=== PATIENT | male | born 1965 | race Caucasian/White ===

== ENCOUNTER 2018-11-06 07:55 | Outpatient (CLI) | payer OTHER ==
--- NOTE | 2018-11-06 09:35 | RAD ---
CHEST 2 VIEWS: Date: 11/06/18 HISTORY: Malignant neoplasm of border of tongue. COMPARISON: Radiograph from 2010. FINDINGS: Lungs are without confluent air space consolidation, pneumothorax, or effusion. Cardiac silhouette an d mediastinal contours are similar. No acute osseous abnormality. IMPRESSION: No acute intrathoracic abnormality. POS: [facility]
--- NOTE | 2018-11-06 09:56 | CT ---
CONTRAST ENHANCED CT IMAGES SOFT TISSUE NECK. HISTORY: Right posterior margin tongue mass compared to previous exam. COMPARISON: Previous comparison CT images of neck not available at this institution. The patient states he has h ad no previous soft tissue neck CT and does not recall having a scan previously. FINDINGS: CT images soft tissue neck demonstrate an enhancing area of abnormal erosive change involving the rig ht lateral body of the tongue. The area of enhancement measures 2.6 x 0.6 x 1.3 cm. No evidence of a parotid or carotid space mass is seen. Some mild atherosclerotic calcification is s een in the distal aspect of the common carotid arteries and proximal internal carotid arteries. There is some heterogeneity also seen in the mid pole of the right thyroid lobe laterally. Further w orkup using thyroid sonography may be of use. IMPRESSION: Enhancing right tongue heterogeneous mass concerning for malignancy. Correlation with PET imaging ma y be of use. No other definite evidence of soft tissue neck abnormality is seen. POS: [facility]
[2018-11-06] MEDS ORDERED: Iopamidol 370 76% 100 ML VIAL ONE (10:57)
== END 2018-11-06 07:56 | disposition home or self-care (01) ==
LOC: BICCT 07:55
PROVIDERS: ATTEND Internal Medicine Medical Oncology
DX: C02.1 Malignant neoplasm of border of tongue (principal); K14.9 Disease of tongue, unspecified
CPT/HCPCS: 70491; 71046; Q9967

== ENCOUNTER 2018-11-14 11:23 | Outpatient (CLI) | payer OTHER ==
--- NOTE | 2018-11-14 14:24 | PET ---
RADIONUCLIDE PET SCAN WITH CT ATTENUATION CORRECTION: HISTORY: Tongue cancer. Initial staging. FINDINGS: Physiologic uptake of radiotracer throughout the enteric system and along each urinary tract. A focal area of markedly increased radiotracer uptake at the right side of the tongue and region of abnormal ity described on recent CT shows a maximum SUV of 9.9. No abnormal activity is apparent along either jugular lymph node chain. Uptake within the chest, abdomen, and pelvis is within normal limits. No hy permetabolic lesions of the bone. Tiny calcific density associated with a nondilated sweta at the mid portion of the right kidney. There is prominent calcification throughout the arterial structures. IMPRESSION: 1. Hypermetabolic activity associated with right tongue cancer. No evidence of lymph node involvemen t or distant metastases. 2. Atherosclerosis. 3. Tiny, nonobstructing right renal calculus. POS: [facility]
== END 2018-11-14 11:24 | disposition home or self-care (01) ==
LOC: PET 11:23
PROVIDERS: ATTEND Internal Medicine Medical Oncology
DX: C02.9 Malignant neoplasm of tongue, unspecified (principal); I70.90 Unspecified atherosclerosis; N20.0 Calculus of kidney; R94.8 Abnormal results of function studies of other organs and systems
CPT/HCPCS: 78815; A9552

== ENCOUNTER 2018-11-15 06:58 | Inpatient (IN) | payer OTHER ==
[2018-11-14 15:18] VITALS: BMI 29.8
[2018-11-15] MEDS ORDERED: Bacitracin Zinc Ointment 30 gm TUBE ONE (09:39)
[2018-11-15] MEDS ORDERED: Lidocaine 1% w/Epinephrine 1:100K 20 ML VIAL ONE (09:39)
[2018-11-15] MEDS ORDERED: Famotidine/PF 20 mg/2ml Vial ONE (09:46)
[2018-11-15] MEDS ORDERED: Fentanyl 100 MCG/2 ML VIAL ONE ×3 (09:46→13:27)
[2018-11-15] MEDS ORDERED: Lidocaine 2% Jelly 5 ML TUBE ONE (09:52)
[2018-11-15] MEDS ORDERED: Oxymetazoline HCl 0.05% ( 15 ML ) ONE (09:52)
[2018-11-15] MEDS ORDERED: Clindamycin/D5W 900 mg/50 ml Premix Bag ONE (10:20)
[2018-11-15] MEDS ORDERED: HYDROmorphone 2 MG/ML VIAL ONE (11:38)
[2018-11-15] MEDS ORDERED: Metoclopramide HCl 10 MG/2 ML VIAL ONE (11:39)
[2018-11-15] MEDS ORDERED: Esmolol 100 MG/10 ML VIAL ONE (11:39)
[2018-11-15] MEDS ORDERED: Succinylcholine Chloride 20 MG/ML 10 ml SYRINGE FS ONE (11:39)
[2018-11-15] MEDS ORDERED: Lidocaine 1% PF 5 ML VIAL ONE (11:39)
[2018-11-15] MEDS ORDERED: Ondansetron PF 4 MG/2 ML Vial ONE (11:39)
[2018-11-15] MEDS ORDERED: Ketorolac Tromethamine 30 MG/ML VIAL ONE (11:39)
[2018-11-15] MEDS ORDERED: Dexamethasone 20 MG/5 ML VIAL ONE (11:39)
[2018-11-15] MEDS ORDERED: PROPOFOL 200 MG/20 ML VIAL ONE (11:39)
[2018-11-15] MEDS ORDERED: diphenhydrAMINE 50 MG/ML VIAL IM PRN (12:41)
[2018-11-15] MEDS ORDERED: Promethazine HCl 25 MG/ML VIAL SLOW IVP PRN (12:41)
[2018-11-15] MEDS ORDERED: Promethazine HCl 25 MG/ML VIAL IM PRN ×2 (12:41)
[2018-11-15] MEDS ORDERED: diphenhydrAMINE 25 MG CAP PO PRN (12:41)
[2018-11-15] MEDS ORDERED: Morphine CADD 1 MG/ML CADD IVPB PRN (12:41)
[2018-11-15] MEDS ORDERED: Ondansetron PF 4 MG/2 ML Vial IVP PRN (12:41)
[2018-11-15] MEDS ORDERED: Ondansetron HCl/PF 4 MG/2 ML Vial IVP PRN (12:41)
[2018-11-15] MEDS ORDERED: Naloxone HCl 0.4 mg/ml Vial IV PRN (12:41)
[2018-11-15] MEDS ORDERED: Zolpidem Tartrate 5 MG TAB PO PRN (12:41)
[2018-11-15] MEDS ORDERED: Meperidine HCl/PF 25 MG/ML VIAL SLOW IVP PRN (12:41)
[2018-11-15] MEDS ORDERED: diphenhydrAMINE 50 MG/ML VIAL IVP PRN (12:41)
[2018-11-15] MEDS ORDERED: Communication Order-Pharmacy FS SCH (12:45)
[2018-11-15] MEDS ORDERED: Hydrocodone-Acetamin 15 ML UDCUP PO PRN (14:33)
[2018-11-15] MEDS ORDERED: Ondansetron PF 4 MG/2 ML Vial SLOW IVP PRN (14:35)
[2018-11-15] MEDS ORDERED: Dextrose 5% in Water 1,000 ML IV PRN (14:41)
[2018-11-15] MEDS ORDERED: Dextrose 50% Abboject 50 ML SYRINGE IVP PRN (14:41)
[2018-11-15] MEDS ORDERED: Insulin Regular 300 UNITS/3 ML VIAL SC SCH (14:45)
[2018-11-15] MEDS: Sodium Chloride 0.45% 1,000 ML IV SCH ×2 (16:44→22:37)
[2018-11-15] MEDS: Clindamycin/D5W 900 MG in Premix Bag 1 BAG IVPB SCH (17:53)
[2018-11-15] MEDS ORDERED: Insulin Regular 300 UNITS/3 ML VIAL SC PRN (18:16)
[2018-11-15] MEDS: Lisinopril 2.5 MG TAB PO SCH (20:22)
[2018-11-15] MEDS: Bacitracin Zinc 1 Packet TOP SCH (20:22)
[2018-11-15] MEDS: Nicotine 14 MG PATCH TOP SCH (22:36)
[2018-11-16] MEDS: Clindamycin/D5W 900 MG in Premix Bag 1 BAG IVPB SCH ×3 (01:10→17:16)
--- NOTE | 2018-11-16 03:17 | CON ---
DATE OF CONSULTATION: 11/15/2018 HISTORY OF PRESENT ILLNESS: Mr. Grady is a very pleasant, 53-year-old male. He is unable to give much of a history because of his operative procedure. He apparently was found to have a head and neck tumor and has been operated on by Ear, Nose, and Throat Surgery today. There is no operative note available in the medical record yet. There is also no H and P in the medical record. I was consulted because of his presence in the intermediate care unit. Reviewing old records, he had a CT scan done in October of this year on the showing a right posterior lateral tongue mass measuring 2.6 x 0.6 x 1.3 cm. Per the report, this is worrisome for malignancy. PET imaging done 8 days later showed a tongue lesion, but no lymph node involvement. He had renal stones noted. He subsequently has undergone neck dissection, partial tongue resection on this evening, is transferred to the intermediate care unit. PAST MEDICAL HISTORY: Obtained from old records since he cannot really talk well at this time, is remarkable for 1. History of heavy alcohol use noted in 2014. 2. History of lipid disorder. 3. History of medical noncompliance. 4. History of depression. 5. History of tobacco use. 6. History of an appendectomy. FAMILY HISTORY: Positive for vascular disease, diabetes, and cancer. SOCIAL HISTORY: It is unclear whether he is smoking now or not, but I do not believe he is. REVIEW OF SYSTEMS: Ten-point review of systems completed, not obtainable. PHYSICAL EXAMINATION: GENERAL: He is a very cooperative, pleasant considering his how miserable he is postoperatively. He is only complaining of a dry mouth. VITAL SIGNS: He is afebrile. Blood pressure 135/73, heart rate 86, respiratory rate is 18, oximetry is 93 to 95. HEENT: Pupils are equal. Sclerae are anicteric. NECK: Supple. He has scars over his neck. They are open and sutured. Two drains coming out his lower anterior neck. He is complaining only of a dry mouth. LUNGS: Clear. HEART: Regular rhythm. S1 and S2 are normal. ABDOMEN: Soft and nontender. EXTREMITIES: Without clubbing, cyanosis, or edema. IMPRESSION: 1. Status post head and neck surgery for malignancy. 2. Dry mouth. I have asked the respiratory therapist to get him a face mask just for humidity and hopefully lead to improvement of his dry mouth symptoms. I would be happy to follow with him in the Critical Care Unit and intermediate care unit until he transfers out. This is a 70 minute consult, with greater than 50% of time spent on unit coordinating care. Job ID: [id number] MTDD
[2018-11-16] MEDS: Sodium Chloride 0.45% 1,000 ML IV SCH ×3 (06:10→22:24)
--- NOTE | 2018-11-16 06:44 | CON ---
DATE OF CONSULTATION: SUBJECTIVE: Postop visit from earlier today, the patient underwent a hemiglossectomy along with a right partial neck dissection. Overall, the patient is doing very well. He is sitting up in his bed comfortably. At this time, is with him. He is breathing through his nose without any difficulty, still states it is somewhat difficult to swallow, though he is able to do so. He has no other complaints at this time. OBJECTIVE: Again, the patient is a very pleasant male. Postsurgery, he is sitting comfortably, breathing without any difficulty. He is able to open mouth and breathe through the mouth as well as nose. Wound site appears to be doing well. All sutures and rosa isela are in place. Upon examination of his oral region, tongue is moderately swollen, though able to see completely back to the pharynx region. No sign of infection in operative site at this time. Both midline and right drains are in place. ASSESSMENT: Postop visit following hemiglossectomy and partial right neck dissection. PLAN: 1. Monitor blood sugars and treat per sliding scale. 2. Consult Med if blood sugars are not able to be controlled per sliding scale. 3. He will stay in ICU area through the night. Consult ENT as needed. Job ID: [id number]
[2018-11-16] MEDS ORDERED: Nicotine 14 MG PATCH TOP SCH (09:00)
[2018-11-16] MEDS: Atorvastatin Calcium 10 MG TAB PO SCH (09:04)
[2018-11-16] MEDS: Bacitracin Zinc 1 Packet TOP SCH ×2 (09:06→20:13)
--- NOTE | 2018-11-16 11:38 | OP ---
DATE OF PROCEDURE: 11/15/2018 PREOPERATIVE DIAGNOSES: 1. 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 2. Dysphagia. POSTOPERATIVE DIAGNOSES: 1. 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 2. Dysphagia. PROCEDURES PERFORMED: 1. Right hemiglossectomy. 2. Right modified radical neck dissection. FACILITIES PAINTER: Iker Camejo. ESTIMATED BLOOD LOSS: 100 mL. COMPLICATIONS: None. ANESTHESIA: GETA. DESCRIPTION OF PROCEDURE: The patient was taken to the operating room and placed supine on table. General endotracheal anesthesia was obtained via nasotracheal intubation by the Anesthesia Staff. Following this, the patient was prepped and draped for standard oral procedure. Following this, the dental gags were placed exposing the oral cavity. On the right lateral tongue, there was a 2.5 cm to 3 cm long lesion that was ulcerative on the right lateral border of the tongue. Using a 1 to 2 cm margin, the Bovie electrocautery was used to excise the near half of the anterior tongue on this right side. Margins were sent and were cleared of any malignancy or dysplasia. Following this, the mucosal edges and the muscle of the remnant tongue on this right side was closed using 2-0 Vicryl stitches. Following this, the patient was prepped and draped in standard surgical fashion for neck procedure. Following this, an apron type incision was created going down the border of the sternocleidomastoid and then extending over horizontally and to the midline of the neck. Incision was made with a 15 blade and a Bovie electrocautery through skin, subcutaneous tissue, and the platysma layer. Subplatysmal flaps were elevated to the level of the mandible superiorly and inferiorly to the level of the clavicle. Following this, level I dissection was proceeded first. The digastric muscle was identified and dissection was carried down the neck contents. The lymphatic system around the submandibular gland was then dissected free of its attachments to the mandible. The facial artery and facial nerve were suture ligated at this area. Following this, the gland was retracted inferiorly and the lingual nerve was identified. The postganglionic fibers were then suture ligated and the nerve was released superiorly. Following this, the gland and the level I contents were displaced inferiorly. The mylohyoid muscle was retracted and from these lymphatic contents anteriorly. The entirety of the right level I submandibular gland and its lymphatic system was then suture ligated and removed from the body. Following this, digastric muscle was retracted superiorly and dissection was then carried down the sternocleidomastoid fascia. The spinal accessory nerve was identified. There was noted to be coursing lateral to the internal jugular vein as it was dissected medially. Level IIA contents were then dissected down to the level of the deep neck muscle fascia and the contents were then passed underneath the spinal accessory nerve and was retracted medially. Following this, dissection was further carried from a superior to inferior direction along the fascia of the sternocleidomastoid down to the deep neck musculature. The omohyoid muscle was identified and was transected and this was carried down to the level of the clavicle. Following this, the inferior limit of the dissection was at the level of the clavicle, where the inferior lymphatic pedicle was suture ligated beginning from the internal jugular vein laterally to the previous posterior dissection area. Following this, the contents were then dissected from lateral to medial and the internal jugular vein was unwrapped. Any feeding vessels were suture ligated. Following this, the lymphatic pedicle of levels II, III, and IV were retracted medially and dissection was carried off the carotid artery. The lymphatic contents were then dissected to the midline of the neck on this side and they were suture ligated and removed. Following this, the wound was irrigated. Drains were placed medially and laterally and the wound was closed using 2-0 Vicryl for the platysma layer and subcuticular layers and rosa isela for the skin. Job ID: [id number]
--- NOTE | 2018-11-16 13:56 | CON ---
DATE OF CONSULTATION: SUBJECTIVE: The patient is doing better. He reports that he is swallowing a little easier, still only sipping water, but is talking much better than he was previous day. OBJECTIVE: Mr. Grady is a well-developed, well-nourished, in no acute distress. He is sitting up comfortably, breathing through his nose without any difficulty. Swallowing is able to be done, though with some soreness, again only able to sip water very minimally. Postop swelling is still present, but improving in oropharyngeal region especially in tongue. Blood sugars have remained stable with no major elevations. Pain has been well controlled with PCM. ASSESSMENT: Postop hemiglossectomy and right-sided partial neck dissection. PLAN: The patient will be transitioned to Med today. We will keep drains in until tomorrow, and no changes in any other orders. Job ID: [id number]
--- NOTE | 2018-11-16 17:44 | PRG ---
DATE OF SERVICE: 11/16/2018 SUBJECTIVE: Mr. Grady has amazingly good spirit considering his current situation. He is afebrile. He is in no distress. OBJECTIVE: VITAL SIGNS: Heart rates in the 90s, blood pressure 125/99. LUNGS: Remarkable for mild rhonchi. HEART: Regular rhythm. ABDOMEN: Soft. He was a smoker until 12 days ago. He might benefit from nebulizer treatments to help mobilize secretions while he is recovering from this. He says he did not feel like putting anything in his mouth at this time. He is receiving IV hydration. Hopefully, he will feel like taking in some liquid nutrition here in the near future. He should continue with his IV hydration. I have recommended starting nebulized treatments every 4 hours while he is awake. Job ID: [id number]
[2018-11-16] MEDS: Lisinopril 2.5 MG TAB PO SCH (20:14)
[2018-11-16] MEDS: Nicotine 14 MG PATCH TOP SCH (22:25)
[2018-11-17] MEDS: Clindamycin/D5W 900 MG in Premix Bag 1 BAG IVPB SCH ×3 (01:53→17:24)
[2018-11-17] MEDS: Sodium Chloride 0.45% 1,000 ML IV SCH ×3 (05:53→20:54)
--- NOTE | 2018-11-17 09:35 | PRG ---
DATE OF SERVICE: 11/17/2018 SUBJECTIVE: Adama Castañeda is doing well. He had no complaints. His voice is getting little better. He take in some tea and some juice. I have asked him to take an Ensure instead that he is getting calories instead of something like tea with no calories. OBJECTIVE: VITAL SIGNS: He is afebrile, heart rate 72, respiratory rate 16, oximetry is 95% on room air, blood pressure 137/75. LUNGS: Clear. HEART: Regular rhythm. ABDOMEN: Soft and nontender. He has had 90 mL total out of his bilateral neck drains. This is serosanguinous fluid. LABORATORY DATA: He has had no lab since he has been here. Lab will be ordered. IMPRESSION: 1. Status post hemiglossectomy for tongue cancer. He continues with IV fluids at 125 mL an hour. 2. ? chronic obstructive pulmonary disease with smoking history until 13 days ago. We will continue nebulized treatments. I helped him to get up from chair. He is actually quite stable on his feet. He needs to be out of bed at least 3 times a day. Job ID: [id number]
[2018-11-17] MEDS: Atorvastatin Calcium 10 MG TAB PO SCH (09:58)
[2018-11-17] MEDS: Bacitracin Zinc 1 Packet TOP SCH ×2 (09:58→20:57)
[2018-11-17] MEDS: Nicotine 14 MG PATCH TOP SCH (20:55)
[2018-11-17] MEDS: Lisinopril 2.5 MG TAB PO SCH (20:58)
--- NOTE | 2018-11-17 23:25 | CON ---
DATE OF CONSULTATION: SUBJECTIVE: Postop visit post hemiglossectomy and right-sided neck dissection. The patient continues to improve. Speech is improving, able to talk more clearly, still has moderate tongue swelling, still having some difficulty swallowing, though has been able to get down some water and tea. He has been receiving some nebulizer breathing treatments at night mostly due to mouth dryness. This was ordered by Dr. Mckinney, who has also been checking on him, otherwise, the patient feels like he is doing well. OBJECTIVE: The patient is well developed, well nourished. He is in no acute distress. He is sitting up comfortably, breathing without difficulty through his nose and mouth. Tongue is still moderately swollen. The patient able to swallow secretions though with some difficulty. Surgical site is healing well. Brian are still in place. No sign of infection. Both midline and right-sided drain were removed without any difficulty or complications. ASSESSMENT: Postop hemiglossectomy with right-sided neck dissection. PLAN: 1. The patient will remain in hospital tonight to allow further swelling to subside. 2. I continued to push liquids, nutrition with goal to begin swallowing better. 3. Needs to be getting up and moving and walking just to increase activity. 4. Dr. Pineda to check on tomorrow morning with hopes to discharge if indicted. Job ID: [id number]
[2018-11-18] MEDS: Clindamycin/D5W 900 MG in Premix Bag 1 BAG IVPB SCH ×2 (01:30→09:12)
[2018-11-18 06:10] LABS: Anion Gap 14 mmol/L (10-20); BUN (Urea Nitrogen) 7 mg/dL (8.4-25.7); Calc. Creatinine Clearance 129 mL/min (70-130); Calcium 9.2 mg/dL (7.8-10.44); Carbon Dioxide 22 mmol/L (22-29); Chloride 104 mmol/L (98-107); Estimated GFR-MDRD Greater than 90; Glucose 119 mg/dL (70-105); Potassium 3.8 mmol/L (3.5-5.1); Sodium 136 mmol/L (136-145)
[2018-11-18 06:34] LABS: Band 2 % (5-11); Hemoglobin 13.9 g/dL (14.0-18.0); Lymphocytes 16 % (21-51); MDiff Complete? YES; Mean Corpuscular HGB CONC 33.8 g/dL (32.0-36.0); Mean Corpuscular Hemoglobin 31.4 pg (27.0-31.0); Mean Corpuscular Volume 92.9 fL (78.0-98.0); Mean Platelet Volume 7.5 fL (7.4-10.4); Monocytes 5 % (0-10); Neutrophil 76 % (42-75); Platelet Count 208 thou/uL (130-400); Platelet Morphology Comment Appears Adequate; RBC Distribution Width 11.6 % (11.5-14.5); RBC Morphology Normal; Reactive Lymphocytes 1 % (0-10); Red Blood Cell (RBC) Count 4.43 mill/uL (4.70-6.10); White Blood Cell (WBC) Count 8.2 thou/uL (4.8-10.8)
[2018-11-18 07:45] VITALS: BP 146/83; TEMP 98.5
[2018-11-18] MEDS: Atorvastatin Calcium 10 MG TAB PO SCH (09:12)
[2018-11-18] MEDS: Bacitracin Zinc 1 Packet TOP SCH (09:12)
[2018-11-18] MEDS: Sodium Chloride 0.45% 1,000 ML IV SCH ×2 (09:12→11:33)
[2018-11-18] MEDS ORDERED: Hydrocodone-Acetamin 15 ML UDCUP PO PRN ×2 (11:07→11:08)
--- NOTE | 2018-11-20 12:46 | DIS ---
DATE OF ADMISSION: 11/15/2018 DATE OF DISCHARGE: 11/18/2018 SUBJECTIVE: The patient doing well. Breathing is much improved. He is now ambulating around the unit, tolerating his full liquid diet well. Pain is well under control. OBJECTIVE: Vital signs remain stable. No fevers. DISCHARGE PLAN: He will be discharged to home on full liquid diet. Follow up with me tomorrow to review pathology and the local wound care with topical antibiotics. Also, his oral antibiotics and oral pain medicines already prescribed. He will follow up with me on Tuesday. Job ID: [id number]
== END 2018-11-18 13:22 | disposition home or self-care (01) | DRG 130 ==
LOC: SDC 06:58 → CCU 10:41 → IMCU/EMU 11:43 → SURG A 11-16 21:06
PROVIDERS: ADMIT Otolaryngology Plastic Surgery within the Head & Neck; ATTEND Otolaryngology Plastic Surgery within the Head & Neck
PROC: 0CB7XZZ Excision of Tongue, External Approach (ICD-10-PCS; principal; 2018-11-15)
PROC: 07T10ZZ Resection of Right Neck Lymphatic, Open Approach (ICD-10-PCS; 2018-11-15)
DX: C02.1 Malignant neoplasm of border of tongue (principal); R13.10 Dysphagia, unspecified; F41.9 Anxiety disorder, unspecified; E78.1 Pure hyperglyceridemia; E11.9 Type 2 diabetes mellitus without complications; H92.09 Otalgia, unspecified ear; Z87.891 Personal history of nicotine dependence; Z82.49 Family history of ischemic heart disease and other diseases of the circulatory system; Z83.3 Family history of diabetes mellitus; Z82.3 Family history of stroke; Z80.9 Family history of malignant neoplasm, unspecified
CPT/HCPCS: 36415; 36416; 80048; 85007; 85027; 88305; 88307; 88309; 88331; 88341; 88342; 90471; 90686; 93005; 93010; 94640; G0008; J0131; J1100; J1170; J1815; J1885; J2001; J2274; J2405; J2704; J2765; J3010; J3490; J7620; S0028

== ENCOUNTER 2018-12-25 08:28 | Day surgery (SDC) | payer OTHER, SELFPAY ==
[~2018-12-25 08:28] MED LIST: CISPLATIN IV SCH; Dexamethasone 10 MG in Sodium Chloride 0.9% 50 ML IVPB SCH; Dexamethasone 10 MG/ML VIAL SLOW IVP SCH; Fosaprepitant Dimeglumine 150 MG in Sodium Chloride 0.9% 250 ML 150 ML IVPB SCH; MANNITOL IV SCH; PALONOSETRON HCL 0.05 MG/ML 5 ML VIAL IVP SCH; Palonosetron HCl 0.25 MG in Sodium Chloride 0.9% 50 ML IVPB SCH; SODIUM CHLORIDE 0.9% IV SCH; Sodium Chloride 0.9% 500 ML IV SCH
[2018-12-25] MEDS ORDERED: Sodium Chloride 0.9% 20 ML ONE (08:42)
[2018-12-25 14:55] VITALS: BP 130/68; TEMP 97.5
== END 2018-12-25 14:55 | disposition home or self-care (01) ==
LOC: ONC/OP 08:28
PROVIDERS: ATTEND Internal Medicine Medical Oncology
DX: Z51.11 Encounter for antineoplastic chemotherapy (principal); C02.1 Malignant neoplasm of border of tongue; Z79.899 Other long term (current) drug therapy; Z91.041 Radiographic dye allergy status
CPT/HCPCS: 96361; 96366; 96367; 96375; 96413; 96415; J1100; J1453; J2150; J2469; J3480; J7050; J9060

== ENCOUNTER 2019-01-01 08:43 | Day surgery (SDC) | payer OTHER, SELFPAY ==
[~2019-01-01 08:43] MED LIST changes: -Dexamethasone 10 MG in Sodium Chloride 0.9% 50 ML IVPB SCH; -Palonosetron HCl 0.25 MG in Sodium Chloride 0.9% 50 ML IVPB SCH
[2019-01-01] MEDS ORDERED: Sodium Chloride 0.9% 20 ML ONE (08:44)
[2019-01-01 09:02] VITALS: BP 156/83; TEMP 97.9
== END 2019-01-01 13:54 | disposition home or self-care (01) ==
LOC: ONC/OP 08:43
PROVIDERS: ATTEND Internal Medicine Medical Oncology
DX: Z51.11 Encounter for antineoplastic chemotherapy (principal); C02.1 Malignant neoplasm of border of tongue; Z88.8 Allergy status to other drugs, medicaments and biological substances; Z91.041 Radiographic dye allergy status
CPT/HCPCS: 96361; 96367; 96375; 96413; J1100; J1453; J2150; J2469; J3480; J7050; J9060

== ENCOUNTER 2019-01-08 08:28 | Day surgery (SDC) | payer OTHER ==
[~2019-01-08 08:28] MED LIST changes: -Dexamethasone 10 MG/ML VIAL SLOW IVP SCH
[2019-01-08] MEDS ORDERED: Sodium Chloride 0.9% 30 ML ONE (08:47)
[2019-01-08 12:23] VITALS: BP 134/64; TEMP 98.4
== END 2019-01-08 15:46 | disposition home or self-care (01) ==
LOC: ONC/OP 08:28
PROVIDERS: ATTEND Internal Medicine Medical Oncology
DX: Z51.11 Encounter for antineoplastic chemotherapy (principal); C02.1 Malignant neoplasm of border of tongue; Z88.8 Allergy status to other drugs, medicaments and biological substances; Z91.041 Radiographic dye allergy status
CPT/HCPCS: 96361; 96367; 96375; 96413; J1100; J1453; J2150; J2469; J3480; J7050; J9060

== ENCOUNTER 2019-01-15 08:47 | Day surgery (SDC) | payer OTHER ==
[~2019-01-15 08:47] MED LIST changes: +Dexamethasone 10 MG in Sodium Chloride 0.9% 50 ML IVPB SCH; -Fosaprepitant Dimeglumine 150 MG in Sodium Chloride 0.9% 250 ML 150 ML IVPB SCH; -PALONOSETRON HCL 0.05 MG/ML 5 ML VIAL IVP SCH; +Palonosetron HCl 0.25 MG in Sodium Chloride 0.9% 50 ML IVPB SCH; -Sodium Chloride 0.9% 500 ML IV SCH; +Sodium Chloride 0.9% 500 ML IVPB SCH
[2019-01-15] MEDS ORDERED: Sodium Chloride 0.9% 20 ML ONE (08:59)
[2019-01-15 09:24] VITALS: BP 133/67; TEMP 98.3
== END 2019-01-15 15:16 | disposition home or self-care (01) ==
LOC: ONC/OP 08:47
PROVIDERS: ATTEND Internal Medicine Medical Oncology
DX: Z51.11 Encounter for antineoplastic chemotherapy (principal); C02.1 Malignant neoplasm of border of tongue; Z88.8 Allergy status to other drugs, medicaments and biological substances; Z91.041 Radiographic dye allergy status
CPT/HCPCS: 96361; 96367; 96375; 96413; J1100; J1453; J2150; J2469; J3480; J3490; J7050; J9060

== ENCOUNTER 2019-01-22 08:00 | Day surgery (SDC) | payer OTHER ==
[2019-01-22] MEDS ORDERED: Palonosetron HCl 0.25 MG in Sodium Chloride 0.9% 50 ML IVPB SCH (08:30)
[2019-01-22] MEDS ORDERED: Sodium Chloride 0.9% 1,000 ML IV SCH (08:30)
[2019-01-22] MEDS ORDERED: Sodium Chloride 0.9% 30 ML ONE (08:32)
[2019-01-22] MEDS ORDERED: MANNITOL IV SCH (08:45)
[2019-01-22] MEDS ORDERED: SODIUM CHLORIDE 0.9% IV SCH (08:45)
[2019-01-22] MEDS ORDERED: CISPLATIN IV SCH (08:45)
[2019-01-22 09:15] VITALS: BP 131/76; TEMP 98.5
== END 2019-01-22 14:29 | disposition home or self-care (01) ==
LOC: ONC/OP 08:00
PROVIDERS: ATTEND Internal Medicine Medical Oncology
DX: Z51.11 Encounter for antineoplastic chemotherapy (principal); C02.1 Malignant neoplasm of border of tongue; Z91.041 Radiographic dye allergy status; Z88.8 Allergy status to other drugs, medicaments and biological substances; Z79.84 Long term (current) use of oral hypoglycemic drugs; Z79.899 Other long term (current) drug therapy
CPT/HCPCS: 96361; 96367; 96375; 96413; J1100; J1453; J2150; J2469; J3480; J3490; J7050; J9060

== ENCOUNTER 2019-01-29 08:23 | Day surgery (SDC) | payer OTHER ==
[2019-01-29] MEDS ORDERED: Sodium Chloride 0.9% 1,000 ML IV SCH (08:45)
[2019-01-29] MEDS ORDERED: Sodium Chloride 0.9% 20 ML ONE (08:46)
[2019-01-29] MEDS ORDERED: CISPLATIN IV SCH (09:00)
[2019-01-29] MEDS ORDERED: SODIUM CHLORIDE 0.9% IV SCH (09:00)
[2019-01-29] MEDS ORDERED: MANNITOL IV SCH (09:00)
[2019-01-29] MEDS ORDERED: Palonosetron HCl 0.25 MG in Sodium Chloride 0.9% 50 ML IVPB SCH (09:00)
[2019-01-29 09:23] VITALS: BP 120/60; TEMP 99.1
== END 2019-01-29 14:36 | disposition home or self-care (01) ==
LOC: ONC/OP 08:23
PROVIDERS: ATTEND Internal Medicine Medical Oncology
DX: Z51.11 Encounter for antineoplastic chemotherapy (principal); C02.1 Malignant neoplasm of border of tongue; Z88.8 Allergy status to other drugs, medicaments and biological substances; Z91.041 Radiographic dye allergy status
CPT/HCPCS: 96361; 96366; 96375; 96413; J1100; J1453; J2150; J2469; J3480; J3490; J7050; J9060

== ENCOUNTER 2019-10-02 06:09 | Day surgery (SDC) | payer OTHER, SELFPAY ==
[2019-09-28 09:07] VITALS: BMI 28.2
[2019-10-02] MEDS ORDERED: ceFOXitin 2 GM/50 ML Duplex BAG ONE (07:11)
[2019-10-02 07:52] LABS: Anion Gap 15 mmol/L (10-20); BUN (Urea Nitrogen) 6 mg/dL (8.4-25.7); Calc. Creatinine Clearance 109 mL/min (70-130); Calcium 9.3 mg/dL (7.8-10.44); Carbon Dioxide 24 mmol/L (22-29); Chloride 102 mmol/L (98-107); Estimated GFR-MDRD Greater than 90; Glucose 187 mg/dL (70-105); Potassium 3.8 mmol/L (3.5-5.1); Sodium 137 mmol/L (136-145)
[2019-10-02] MEDS ORDERED: Bupivacaine 0.25% HCL 30 ML VIAL ONE (08:33)
[2019-10-02] MEDS ORDERED: Lidocaine 1% w/Epinephrine 1:100K 20 ML VIAL ONE (08:33)
[2019-10-02] MEDS ORDERED: Lidocaine 2% Jelly 5 ML TUBE ONE (08:34)
[2019-10-02] MEDS ORDERED: Lidocaine 1% PF 5 ML VIAL ONE (09:30)
[2019-10-02] MEDS ORDERED: PROPOFOL 200 MG/20 ML VIAL ONE (09:30)
[2019-10-02] MEDS ORDERED: Dexamethasone 20 MG/5 ML VIAL ONE (09:30)
[2019-10-02] MEDS ORDERED: Ondansetron PF 4 MG/2 ML Vial ONE (09:30)
[2019-10-02] MEDS ORDERED: Fentanyl 100 MCG/2 ML VIAL ONE ×4 (09:45→10:39)
[2019-10-02] MEDS ORDERED: HYDROcodone/Acetaminophen 5/325 mg Tablet ONE (11:28)
--- NOTE | 2019-10-02 11:35 | OP ---
DATE OF PROCEDURE: 10/02/2019 PREOPERATIVE DIAGNOSIS: Multiple [id number]. POSTOPERATIVE DIAGNOSIS: Multiple [id number]. PROCEDURE: Fistulotomy with seton placement x2. ANESTHESIA: General. ESTIMATED BLOOD LOSS: Minimal. COMPLICATIONS: None. SPECIMEN: None. 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 No obvious anal canal mass. TECHNIQUE: The patient was taken to the operating room and laid supine on the operating room table. After general anesthetic was obtained, placed in the candy-cane lithotomy position. Perineum was prepped and draped in a sterile fashion. Exam reveals no obvious anal canal mass. There were no mucosal abnormalities. He has pus draining from 2 external openings, one in the left posterolateral, one in the right posterolateral. Fistula probe was used to delineate the full extent of the fistula to the posterior midline on both sides. The external skin was opened toward the sphincter muscle. The sphincter muscle was not damaged. Heavy silk suture was tied in a knot around the sphincter portion of the fistula. He will likely need staged fistulectomy. Meticulous hemostasis was obtained, and the granulation tissue and the fistula site were cauterized. The patient was sent to Recovery in stable condition. All instrument counts, needle counts, and lap counts were correct. Job ID: [id number]
== END 2019-10-02 12:00 | disposition home or self-care (01) ==
LOC: SDC 06:09
PROVIDERS: ATTEND Surgery
PROC: 0DBQ4ZZ Excision of Anus, Percutaneous Endoscopic Approach (ICD-10-PCS; principal; 2019-10-02)
DX: K60.3 Anal fistula (principal); E11.9 Type 2 diabetes mellitus without complications; F41.9 Anxiety disorder, unspecified; Z79.84 Long term (current) use of oral hypoglycemic drugs; Z79.899 Other long term (current) drug therapy; Z87.891 Personal history of nicotine dependence; Z88.8 Allergy status to other drugs, medicaments and biological substances; Z91.041 Radiographic dye allergy status
CPT/HCPCS: 36415; 80048; 93005; 93010; J0694; J1100; J2001; J2405; J2704; J3010; S0020

== ENCOUNTER 2019-10-24 10:19 | Emergency (ER) | payer OTHER, SELFPAY ==
[2019-10-24 11:05] LABS: #Eosinphils 0.1 thou/uL (0.0-0.7); #Lymphocytes 0.8 thou/uL (1.20-3.40); #Monocytes 0.5 thou/uL (0.11-0.59); #Neutrophils 3.8 thou/uL (1.40-6.50); %Monocytes 8.9 % (0.0-10.0); %Neutrophils 73.1 % (42.0-75.0); Hemoglobin 13.1 g/dL (14.0-18.0); Mean Corpuscular HGB CONC 33.9 g/dL (32.0-36.0); Mean Corpuscular Hemoglobin 31.6 pg (27.0-31.0); Mean Corpuscular Volume 93.2 fL (78.0-98.0); Platelet Count 197 thou/uL (130-400); RBC Distribution Width 11.6 % (11.5-14.5); Red Blood Cell (RBC) Count 4.14 mill/uL (4.70-6.10); White Blood Cell (WBC) Count 5.2 thou/uL (4.8-10.8)
[2019-10-24 11:19] LABS: Anion Gap 15 mmol/L (10-20); BUN (Urea Nitrogen) 9 mg/dL (8.4-25.7); Calc. Creatinine Clearance 0 mL/min (70-130); Calcium 9.6 mg/dL (7.8-10.44); Carbon Dioxide 24 mmol/L (22-29); Chloride 101 mmol/L (98-107); Estimated GFR-MDRD Greater than 90; Glucose 112 mg/dL (70-105); Potassium 4.1 mmol/L (3.5-5.1); Sodium 136 mmol/L (136-145)
[2019-10-24 11:20] LABS: Acetaminophen Less than 6.0 mcg/mL (10.0-30.0); Alcohol Less than 10 mg/dL (Less than 10); Salicylate Less than 8.0 mg/dL (15.0-30.0)
[2019-10-24 12:13] LABS: Bilirubin Negative (Negative); Blood, Urine Negative (Negative); Clarity Clear (Clear); Glucose, Urine (Dipstick) Normal (Negative); Leukocyte Negative Leu/uL (Negative); Nitrite Negative (Negative); Protein, Urine (Dipstick) Negative (Neg-Trace); Urobilinogen Normal mg/dL (Less than 2)
[2019-10-24 12:15] LABS: Amphetamine Not Detected (NotDetected); Barbiturates Screen Not Detected (NotDetected); Benzodiazepine Screen Not Detected (NotDetected); Cocaine Metabolite Screen Not Detected (NotDetected); Medtox Control Line Valid? VALID (VALID); Medtox Reader # READER 4; Methadone Not Detected (NotDetected); Methamphetamine Not Detected (NotDetected); Opiate Screen Not Detected (NotDetected); Oxycodone Screen Not Detected (NotDetected); Phencyclidine (PCP) Not Detected (NotDetected); THC/Cannabinoid Screen Not Detected (NotDetected); Tricyclic Screen Not Detected (NotDetected)
[2019-10-24] MEDS ORDERED: HYDROcodone/Acetaminophen 10/325 mg Tablet ONE (13:32)
[2019-10-24] MEDS ORDERED: Ibuprofen 200 MG TAB ONE (19:52)
[2019-10-24] MEDS ORDERED: Lisinopril 5 MG TAB PO SCH (20:00)
[2019-10-24] MEDS ORDERED: metFORMIN 500 MG TAB PO SCH (20:00)
[2019-10-24] MEDS ORDERED: Atorvastatin Calcium 10 MG TAB PO SCH (20:00)
== END 2019-10-24 20:32 ==
LOC: ERS 10:19
DX: R45.851 Suicidal ideations (principal); F32.9 Major depressive disorder, single episode, unspecified; E11.9 Type 2 diabetes mellitus without complications; E78.5 Hyperlipidemia, unspecified; E78.00 Pure hypercholesterolemia, unspecified; I10 Essential (primary) hypertension; J44.9 Chronic obstructive pulmonary disease, unspecified; K60.3 Anal fistula; Z87.891 Personal history of nicotine dependence; Z79.84 Long term (current) use of oral hypoglycemic drugs; Z79.899 Other long term (current) drug therapy
CPT/HCPCS: 36415; 80048; 80306; 80307; 81003; 85025; 99285

== ENCOUNTER 2022-07-16 07:56 | Outpatient (CLI) | payer OTHER | END 2022-07-16 07:57 | disposition home or self-care (01) | LOC: CT 07:56 | PROVIDERS: ATTEND Urology | DX: C61 Malignant neoplasm of prostate (principal); K76.0 Fatty (change of) liver, not elsewhere classified; N20.0 Calculus of kidney; N28.1 Cyst of kidney, acquired; I70.8 Atherosclerosis of other arteries; I74.5 Embolism and thrombosis of iliac artery | CPT/HCPCS: 74178 ==

== ENCOUNTER 2022-08-30 12:51 | Outpatient (CLI) | payer OTHER | END 2022-08-30 12:52 | disposition home or self-care (01) | LOC: RAD 12:51 | PROVIDERS: ATTEND Radiology Radiation Oncology | DX: R13.10 Dysphagia, unspecified (principal); R63.30 Feeding difficulties, unspecified | CPT/HCPCS: 74230 ==

== ENCOUNTER 2022-11-26 10:21 | Outpatient (CLI) | payer OTHER ==
[2022-11-26] MEDS ORDERED: Iopamidol 370 76% 100 ML VIAL ONE (14:58)
== END 2022-11-26 10:22 | disposition home or self-care (01) ==
LOC: BICCT 10:21
PROVIDERS: ATTEND Thoracic Surgery (Cardiothoracic Vascular Surgery)
DX: I70.213 Atherosclerosis of native arteries of extremities with intermittent claudication, bilateral legs (principal); I74.5 Embolism and thrombosis of iliac artery; I70.0 Atherosclerosis of aorta
CPT/HCPCS: 75635; 82565; Q9967

== ENCOUNTER 2023-08-29 08:55 | Outpatient (CLI) | payer OTHER ==
[2023-08-29] MEDS ORDERED: Iopamidol 370 76% 100 ML VIAL ONE (14:21)
== END 2023-08-29 08:56 | disposition home or self-care (01) ==
LOC: CT 08:55
PROVIDERS: ATTEND Otolaryngology Plastic Surgery within the Head & Neck
DX: R13.10 Dysphagia, unspecified (principal); Z98.890 Other specified postprocedural states
CPT/HCPCS: 70491; Q9967

== ENCOUNTER 2025-04-25 08:17 | Outpatient (CLI) | payer OTHER ==
[2025-04-25 08:46] LABS: Estimated GFR - POC 86.0
== END 2025-04-25 08:18 | disposition home or self-care (01) ==
LOC: CT 08:17
PROVIDERS: ATTEND Otolaryngology Plastic Surgery within the Head & Neck
DX: C02.9 Malignant neoplasm of tongue, unspecified (principal)
CPT/HCPCS: 36415; 70491; 82565

== ENCOUNTER 2025-05-17 15:04 | Outpatient (CLI) | payer OTHER ==
[2025-05-17] MEDS ORDERED: Iopamidol 370 76% 100 ML VIAL ONE (15:39)
== END 2025-05-17 15:05 | disposition home or self-care (01) ==
LOC: CT 15:04
PROVIDERS: ATTEND Otolaryngology
DX: C02.9 Malignant neoplasm of tongue, unspecified (principal)
CPT/HCPCS: 71260

== ENCOUNTER 2025-09-02 10:08 | Outpatient (CLI) | payer OTHER | END 2025-09-02 10:09 | disposition home or self-care (01) | LOC: RAD 10:08 | PROVIDERS: ATTEND Otolaryngology Plastic Surgery within the Head & Neck | DX: R13.10 Dysphagia, unspecified (principal); R63.39 Other feeding difficulties; C02.9 Malignant neoplasm of tongue, unspecified; Z90.89 Acquired absence of other organs; Z98.890 Other specified postprocedural states | CPT/HCPCS: 74230 ==